=== PATIENT | female | born 1990 | race Caucasian/White ===

== ENCOUNTER 2019-03-14 19:18 | Emergency (ER) | payer OTHER ==
[~2019-03-14] VITALS: Ht 162.6 cm; Wt 81.7 kg
[~2019-03-14 19:18] MED LIST: ACYCLOVIR 400400 MG PO; FLEXERIL PO
[2019-03-14 19:49] LABS: ABSOLUTE NEUTROPHILS 4.3 thou/uL (1.4-8.2); BASOPHILS 0.7 % (0.0-2.0); EOSINOPHILS 2.1 % (0.0-3.0); HEMATOCRIT 39.7 % (37.0-47.0); HEMOGLOBIN 13.1 gm/dL (12.0-15.0); LYMPHOCYTES 32.9 % (24.0-44.0); MCH 28.1 pg (26.0-34.0); MCHC 32.9 g/dL (28.0-37.0); MCV 85.5 fL (80.0-100.0); MONOCYTES 10.2 % (1.0-8.0); PLATELET COUNT 200 thou/uL (150-400); POLYS 54.1 % (36.0-66.0); RBC 4.64 mil/uL (4.20-5.00); RDW 15.4 % (10.5-14.5); WBC 7.9 thou/uL (4.0-11.0)
[2019-03-14 19:54] LABS: URINE BILIRUBIN NEGATIVE (Negative); URINE BLOOD NEGATIVE (Negative); URINE CLARITY CLEAR; URINE COLOR YELLOW; URINE GLUCOSE-RANDOM* NEGATIVE (Negative); URINE KETONES NEGATIVE (Negative); URINE LEUKOCYTES-REFLEX NEGATIVE (Negative); URINE NITRITE-REFLEX NEGATIVE (Negative); URINE PROTEIN (DIPSTICK) NEGATIVE (Negative); URINE SPECIFIC GRAVITY 1.025 (1.005-1.035); URINE UROBILINOGEN 0.2 E.U./dl (0.2-1.0)
[2019-03-14 19:59] LABS: CALCIUM 8.5 mg/dL (8.5-10.1); CREATININE 0.8 mg/dL (0.6-1.0)
[2019-03-14 20:05] LABS: ALBUMIN 3.8 g/dL (3.4-5.0); TOTAL BILIRUBIN 0.2 mg/dL (<0.1-1.0); TOTAL PROTEIN 7.8 g/dL (6.4-8.2)
[2019-03-14] MEDS ORDERED: ULTRAM 50MG TAB50 MG PO (20:46)
[2019-03-14] MEDS ORDERED: PREDNISONE 10 M10 MG PO (20:46)
[2019-03-14 21:54] VITALS: BP 103/63
--- NOTE | 2019-03-15 12:53 | EKG ---
[address] [address] ELECTROCARDIOGRAM REPORT Name: KRYSTAL GARCIA Room #: [id number] ������������������ Admission: 03/14/19 ������������������ Attend Phys: Discharge: 03/14/19 ������������������ Date of : 86 Report #: [id number] ����������������������������������������������������������������� [id number] THIS REPORT FOR: //name// [facility] ED Test Date: 2019-03-14 Test Time: 19:33:21 Pat Name: KRYSTAL GARCIA Department: Room: Gender: F Abstract Checker: [email or web address] : 1990 Requested By: Alison Milligan Order Number: [id number] MD: Emanuel Saunders Measurements Intervals [place] Rate: 81 P: 66 NM: 136 QRS: 70 QRSD: 88 T: 33 QT: 376 QTc: 437 Interpretive Statements Sinus rhythm Normal tracing No previous ECG available for comparison Electronically Signed On 03-15-2019 12:53:19 CDT by Emanuel Saunders [email or web address] ��������������������������������������������� <ELECTRONICALLY SIGNED> ���������������������������������������� By: Emanuel Saunders MD, [facility] ��������������������������������������������� 03/15/19 1253 1933 32 Emanuel Saunders MD, FACC /EPI
== END 2019-03-14 21:54 | disposition home or self-care (01) ==
LOC: ER 19:18
PROVIDERS: Physician Assistant
DX: R09.1 Pleurisy (principal); R07.89 Other chest pain; F17.210 Nicotine dependence, cigarettes, uncomplicated; G89.29 Other chronic pain; Z88.6 Allergy status to analgesic agent

== ENCOUNTER 2019-06-05 07:41 | Emergency (ER) | payer OTHER ==
[~2019-06-05] VITALS: Ht 162.6 cm; Wt 81.7 kg
[~2019-06-05 07:41] MED LIST changes: +PREDNISONE 10 M10 MG PO; +ULTRAM 50MG TAB50 MG PO
[2019-06-05 08:18] LABS: URINE BILIRUBIN NEGATIVE (Negative); URINE BLOOD NEGATIVE (Negative); URINE CLARITY CLEAR; URINE COLOR YELLOW; URINE GLUCOSE-RANDOM* NEGATIVE (Negative); URINE KETONES NEGATIVE (Negative); URINE LEUKOCYTES-REFLEX NEGATIVE (Negative); URINE NITRITE-REFLEX NEGATIVE (Negative); URINE PROTEIN (DIPSTICK) NEGATIVE (Negative); URINE UROBILINOGEN 0.2 E.U./dl (0.2-1.0)
[2019-06-05 09:31] VITALS: BP 98/65
== END 2019-06-05 09:32 | disposition home or self-care (01) ==
LOC: ER 07:41
PROVIDERS: Emergency Medicine
DX: K52.9 Noninfective gastroenteritis and colitis, unspecified (principal); J06.9 Acute upper respiratory infection, unspecified; B34.9 Viral infection, unspecified; F17.210 Nicotine dependence, cigarettes, uncomplicated; G89.29 Other chronic pain; M79.605 Pain in left leg; Z88.6 Allergy status to analgesic agent; Z88.8 Allergy status to other drugs, medicaments and biological substances

== ENCOUNTER 2019-06-07 07:09 | Emergency (ER) | payer OTHER ==
[~2019-06-07] VITALS: Ht 162.6 cm; Wt 81.7 kg
[2019-06-07 07:46] LABS: ABSOLUTE NEUTROPHILS 3.5 thou/uL (1.4-8.2); BASOPHILS 0.6 % (0.0-2.0); EOSINOPHILS 1.5 % (0.0-3.0); HEMATOCRIT 40.4 % (37.0-47.0); HEMOGLOBIN 13.2 gm/dL (12.0-15.0); LYMPHOCYTES 16.2 % (24.0-44.0); MCH 27.6 pg (26.0-34.0); MCHC 32.7 g/dL (28.0-37.0); MCV 84.5 fL (80.0-100.0); MONOCYTES 11.9 % (1.0-8.0); PLATELET COUNT 164 thou/uL (150-400); POLYS 69.8 % (36.0-66.0); RBC 4.78 mil/uL (4.20-5.00); RDW 15.1 % (10.5-14.5)
[2019-06-07 07:49] LABS: CREATININE 0.8 mg/dL (0.6-1.0); POTASSIUM 3.9 mmol/L (3.5-5.1)
[2019-06-07 07:55] LABS: ALBUMIN 3.8 g/dL (3.4-5.0); TOTAL BILIRUBIN 0.6 mg/dL (<0.1-1.0)
[2019-06-07] MEDS ORDERED: ZPAK PO (08:58)
[2019-06-07 09:00] VITALS: BP 104/67
== END 2019-06-07 09:00 | disposition home or self-care (01) ==
LOC: ER 07:09
PROVIDERS: Emergency Medicine
DX: J18.9 Pneumonia, unspecified organism (principal); F17.210 Nicotine dependence, cigarettes, uncomplicated; Z88.6 Allergy status to analgesic agent; Z88.5 Allergy status to narcotic agent

== ENCOUNTER 2019-06-11 21:00 | Emergency (ER) | payer OTHER ==
[~2019-06-11] VITALS: Ht 167.6 cm; Wt 81.7 kg
[~2019-06-11 21:00] MED LIST changes: +ZPAK PO
[2019-06-11 21:43] LABS: URINE BILIRUBIN 2+ (Negative); URINE BLOOD NEGATIVE (Negative); URINE CLARITY SL CLOUDY; URINE COLOR YELLOW; URINE GLUCOSE-RANDOM* NEGATIVE (Negative); URINE KETONES 3+ (Negative); URINE LEUKOCYTES-REFLEX NEGATIVE (Negative); URINE NITRITE-REFLEX NEGATIVE (Negative); URINE PROTEIN (DIPSTICK) TRACE (Negative); URINE SPECIFIC GRAVITY >= 1.030 (1.005-1.035); URINE UROBILINOGEN 0.2 E.U./dl (0.2-1.0)
[2019-06-11 21:47] LABS: ABSOLUTE NEUTROPHILS 4.3 thou/uL (1.4-8.2); BASOPHILS 1.1 % (0.0-2.0); EOSINOPHILS 5.1 % (0.0-3.0); HEMATOCRIT 43.1 % (37.0-47.0); HEMOGLOBIN 14.2 gm/dL (12.0-15.0); LYMPHOCYTES 24.6 % (24.0-44.0); MCH 27.7 pg (26.0-34.0); MCV 83.9 fL (80.0-100.0); MONOCYTES 10.8 % (1.0-8.0); PLATELET COUNT 221 thou/uL (150-400); POLYS 58.4 % (36.0-66.0); RBC 5.14 mil/uL (4.20-5.00); RDW 15.3 % (10.5-14.5); WBC 7.3 thou/uL (4.0-11.0)
[2019-06-11 21:48] LABS: ICTOTEST (BILI CONFIRMATORY) Positive (Negative)
[2019-06-11 21:50] LABS: CALCIUM 9.4 mg/dL (8.5-10.1); CREATININE 0.9 mg/dL (0.6-1.0); POTASSIUM 3.4 mmol/L (3.5-5.1)
[2019-06-11 21:56] LABS: ALBUMIN 3.9 g/dL (3.4-5.0); TOTAL BILIRUBIN 0.4 mg/dL (<0.1-1.0); TOTAL PROTEIN 7.7 g/dL (6.4-8.2)
[2019-06-11] MEDS ORDERED: TESSALON PERLE100 MG PO (22:33)
[2019-06-11] MEDS ORDERED: PREDNISONE 20 M20 MG PO (22:33)
[2019-06-11] MEDS ORDERED: AFRIN30 ML INH (22:33)
[2019-06-11] MEDS ORDERED: VENTOLIN HFA 1818 GM INH (22:33)
[2019-06-11 23:03] VITALS: BP 100/66
--- NOTE | 2019-06-12 10:40 | EKG ---
[address] [address] ELECTROCARDIOGRAM REPORT Name: KRYSTAL GARCIA Room #: [facility]P [facility]ITAL[facility] [id number] Admission: 06/11/19 Attend Phys: Discharge: 06/11/19 Date of : [birth year] Report #: [id number] THIS REPORT FOR: //name// [facility] ED Test Date: 2019-06-11 Test Time: 21:22:09 Pat Name: KRYSTAL GARCIA Department: Room: Gender: F [place]: [place] : 1990 Requested By: Naseem Cagle Order Number: [id number] MD: Breezy Samaniego Measurements Intervals [place] Rate: 94 P: 86 [place]: 123 QRS: 77 QRSD: 88 T: 21 QT: 335 QTc: 419 Interpretive Statements Sinus rhythm Minimal ST depression, inferior leads Compared to ECG 03/14/2019 19:33:21 ST (T wave) deviation now present Electronically Signed On 06-12-2019 10:40:36 CDT by Breezy Samaniego [email or web address] <ELECTRONICALLY SIGNED> By: Breezy Samaniego MD 06/12/19 1040 21 21 Breezy Samaniego MD /[email or web address]
== END 2019-06-11 23:39 | disposition home or self-care (01) ==
LOC: ER 21:00
PROVIDERS: Emergency Medicine
DX: J20.8 Acute bronchitis due to other specified organisms (principal); M79.605 Pain in left leg; G89.29 Other chronic pain; F17.210 Nicotine dependence, cigarettes, uncomplicated; Z98.51 Tubal ligation status; Z88.6 Allergy status to analgesic agent